=== PATIENT | female | born 1970 ===

== ENCOUNTER 2017-07-11 17:38 | Emergency (ER) | payer MEDICAID ==
[2017-07-11] MEDS ORDERED: Albuterol/Ipratropium 3.0-0.5 MG/3 ML Neb Soln NEB ONE (18:11)
--- NOTE | 2017-07-11 18:35 | EDM.PDOC ---
ED HPI GENERAL MEDICAL PROBLEM - General Chief Complaint: Respiratory Problem Stated Complaint: PT HAS FLU SYMPTOMS Time Seen by Provider: 07/11/17 17:44 Source of Information: Reports: Patient History Limitations: Reports: No Limitations - History of Present Illness INITIAL COMMENTS - FREE TEXT/NARRATIVE: HISTORY AND PHYSICAL: History of present illness: Patient is a 47-year-old female who presents to the emergency room today with complaints of body aches, fever, cough 2 days. She states that she had pneumonia last year and feels that her symptoms are similar. And Tylenol and ibuprofen as directed without much relief. She denies any headache, neck pain, chest pain, shortness of breath, abdominal pain, nausea, vomiting or diarrhea. Review of systems: As per history of present illness and below otherwise all systems reviewed and negative. Past medical history: As per history of present illness and as reviewed below otherwise noncontributory. Surgical history: As per history of present illness and as reviewed below otherwise noncontributory. Social history: No reported history of drug or alcohol abuse. Family history: As per history of present illness and as reviewed below otherwise noncontributory. Physical exam: General: Well-developed and well-nourished 47-year-old female. Alert and oriented. Nontoxic appearing and in no acute distress. HEENT: Atraumatic, normocephalic, pupils reactive, negative for conjunctival pallor or scleral icterus, mucous membranes moist, throat clear, neck supple, nontender, trachea midline. Lungs: Expiratory wheezing noted to the right middle/lower posterior lobe, breath sounds equal bilaterally, chest nontender. Heart: S1S2, regular rate and rhythm Abdomen: Soft, nondistended, nontender. Negative for masses or hepatosplenomegaly. Negative for costovertebral tenderness. Pelvis: Stable nontender. Genitourinary: Deferred. Rectal: Deferred. Extremities: Atraumatic, negative for cords or calf pain. Neurovascular unremarkable. Neuro: Awake, alert, oriented. Cranial nerves II through XII unremarkable. Cerebellum unremarkable. Motor and sensory unremarkable throughout. Exam nonfocal. Influenza screen is negative. Xray does not show any pneumonia or infiltrate. Will treat the patient for bronchitis with Z-pack, Medrol dosepak, and Phenergan with codiene (#4oz - NRF). Medication education completed with patient. Supportive care measures were discussed. Encouraged her to follow up with her PCP in the next couple days Diagnostics: Influenza, chest x-ray Therapeutics: Sheron Impression: Bronchitis Plan: 1. Please take your medications as discussed. 2. Tylenol and or ibuprofen as needed for pain and fever management. 3. Follow up with her primary caregiver in the next 1-2 days. Return to the ED as needed and as discussed. Definitive disposition and diagnosis as appropriate pending reevaluation and review of above. Duration: Day(s): Throat Pain Score (Numeric/FACES): 8 - Related Data Allergies Allergy/AdvReac Type Severity Reaction Status Date / Time No Known Allergies Allergy Verified 07/11/17 18:07 Home Meds: Home Meds Pregabalin [Lyrica] 300 mg PO BID 08/09/14 [History] ALPRAZolam [Xanax] 1 mg PO TID 01/02/16 [History] Desvenlafaxine Succinate [Pristiq] 50 mg PO DAILY 01/02/16 [History] traZODone 100 mg PO BEDTIME PRN 01/02/16 [History] Past Medical History HEENT History: Reports: Sinusitis Cardiovascular History: Reports: None Other Cardiovascular History: PVCs Respiratory History: Reports: Asthma Gastrointestinal History: Reports: None, Diverticulosis Genitourinary History: Reports: None [employer]ENDANT History: Reports: None Musculoskeletal History: Reports: Fibromyalgia Neurological History: Reports: Migraines Psychiatric History: Reports: Anxiety, Depression Endocrine/Metabolic History: Reports: Diabetes, Type II Hematologic History: Reports: None Immunologic History: Reports: None Oncologic (Cancer) History: Reports: None Dermatologic History: Reports: None - Infectious Disease History Infectious Disease History: Reports: Chicken Pox - Past Surgical History Head Surgeries/Procedures: Reports: None HEENT Surgical History: Reports: Naso-Sinus Surgery Cardiovascular Surgical History: Reports: None Respiratory Surgical History: Reports: None GI Surgical History: Reports: None Female Surgical History: Reports: Section Endocrine Surgical History: Reports: None Neurological Surgical History: Reports: None Musculoskeletal Surgical History: Reports: None Dermatological Surgical History: Reports: None Social & Family History - Family History Family Medical History: Noncontributory HEENT: Reports: None Cardiac: Reports: Aneurysm, Blood Clots/VTE/DVT, High Cholesterol, Hypertension , [place] Respiratory: Reports: Sleep Apnea GI: Reports: Diverticulitis Musculoskeletal: Reports: Arthritis Neurological: Reports: CVA, Migraines Psychiatric: Reports: Anxiety, Depression Endocrine/Metabolic: Reports: Diabetes, Type I, Diabetes, type II, Hyperthyroidism - Tobacco Use Smoking Status *Q: Never Smoker Second Hand Smoke Exposure: No - Alcohol Use Days Per Week of Alcohol Use: 0 - Recreational Drug Use Recreational Drug Use: No ED ROS GENERAL - Review of Systems Review Of Systems: ROS reveals no pertinent complaints other than HPI. ED EXAM, GENERAL - Physical Exam Exam: See Below (See dictation) Course - Vital Signs Last Recorded V/S: Last Vital Signs Temp 98.1 F 07/11/17 18:05 Pulse 114 H 07/11/17 19:22 Resp 20 07/11/17 19:22 BP 141/95 H 07/11/17 19:22 Pulse Ox 95 07/11/17 19:22 - Orders/Labs/Meds Orders: Active Orders 24 hr Category Date Time Status RT Aerosol Therapy [RC] ASDIRECTED Care 07/11/17 18:11 Active Chest 2V [CR] Stat Exams 07/11/17 18:11 Taken Meds: Medications Discontinued Medications Generic Name Dose Route Start Last Admin Trade Name Fitzq PRN Reason Stop Dose Admin Albuterol/Ipratropium 3 ml 07/11/17 18:11 07/11/17 18:25 Duoneb 3.0-0.5 Mg/3 Ml NEB 07/11/17 18:12 3 ml ONETIME ONE Administration Departure - Departure Time of Disposition: 19:06 Disposition: Home, Self-Care 01 Clinical Impression: Bronchitis - Discharge Information Instructions: Acute Bronchitis, [id number] Referrals: PCP,None [Primary Care Provider] - Forms: ED Department Discharge Additional Instructions: My general discharge The following information is given to patients seen in the emergency department who are being discharged to home. This information is to outline your options for follow-up care. We provide all patients seen in our emergency department with a follow-up referral. The need for follow-up, as well as the timing and circumstances, are variable depending upon the specifics of your emergency department visit. If you don't have a primary care physician on staff, we will provide you with a referral. We always advise you to contact your personal physician following an emergency department visit to inform them of the circumstance of the visit and for follow-up with them and/or the need for any referrals to a consulting specialist. The emergency department will also refer you to a specialist when appropriate. This referral assures that you have the opportunity for follow-up care with a specialist. All of these measure are taken in an effort to provide you with optimal care, which includes your follow-up. Under all circumstances we always encourage you to contact your private physician who remains a resource for coordinating your care. When calling for follow-up care, please make the office aware that this follow-up is from your recent emergency room visit. If for any reason you are refused follow-up, please contact the [facility] Emergency Department at and asked to speak to the emergency department charge nurse. [facility] [address] [place] [id number] 1. Please take your medications as discussed. 2. Tylenol and or ibuprofen as needed for pain and fever management. 3. Follow up with her primary caregiver in the next 1-2 days. Return to the ED as needed and as discussed. - My Orders Last 24 Hours: My Active Orders 07/11/17 18:11 RT Aerosol Therapy [RC] ASDIRECTED Chest 2V [CR] Stat - Assessment/Plan Last 24 Hours: My Active Orders 07/11/17 18:11 RT Aerosol Therapy [RC] ASDIRECTED Chest 2V [CR] Stat
[2017-07-11 19:27] VITALS: BP 141/95
--- NOTE | 2017-07-12 11:01 | CR ---
EXAM DATE: 07/11/17 PATIENT'S AGE: 47 Patient: PRISCILA TOLENTINO Facility: [place], [place] Site . Site : [id number] Study: XRay Chest [id number] 7:05:17 PM Ordering Physician: Doctor Disla Final Report: INDICATION: Cough x2 days TECHNIQUE: Chest 2 views. COMPARISON: None FINDINGS: Cardiovascular and mediastinum: Heart size and vasculature are normal in caliber and appearance. Mediastinum is within normal limits. Lungs and pleural spaces: Right hilar atelectasis. No sign of infiltrate or mass. No sign of pleural effusion. No pneumothorax. Bones and soft tissues: No significant findings. IMPRESSION: No evidence for pneumonia. Dictated by Wisam Haynes MD @ 07/11/2017 7:12:54 PM Dictated by: Wisam Haynes MD @ 07/11/2017 19:13:02 (Electronic Signature) Report Signed by Proxy. MILTON
== END 2017-07-11 19:22 | disposition home or self-care (01) ==
LOC: MW.ED 17:38
DX: J40 Bronchitis, not specified as acute or chronic (principal); E11.9 Type 2 diabetes mellitus without complications; Z79.899 Other long term (current) drug therapy
CPT/HCPCS: 71046; 71046-26; 87804; 94640; 99284-25